=== PATIENT | male | born 1970 | race Caucasian/White ===

== ENCOUNTER 2016-12-05 12:34 | Emergency (ER) | payer OTHER ==
[2016-12-05 12:42] VITALS: BMI 27.7
--- NOTE | 2016-12-05 12:42 | PDOC ---
History of Present Illness - General Chief Complaint: Injury Stated Complaint: FALL Time Seen by Provider: 12/05/16 12:39 History Source: Patient Exam Limitations: No Limitations - History of Present Illness Initial Comments: 12/05/16 13:11 46y M hx of hard of hearing, presents s/p fall. 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 pt states he was walking around '[place]' last night and didnt see the hole in front of him and fell, from a ledge approximately 10 feet, he landed on his back, thinks he may have loc briefly. he went home and took some pain meds, but pain still persisteent and not improvement so pt comes to the ED for evaluation. the pt complains of mild headache, neck pain, lower back pain, knee pain, shoulder pain. Pt denies any n/v, vision changes, numbness/tingling/weakness. Past History - Past Medical History Allergies/Adverse Reactions: Allergies Allergy/AdvReac Type Severity Reaction Status Date / Time Penicillins Allergy Rash Verified 12/05/16 12:43 tramadol Allergy Verified 12/05/16 12:43 hydromorphone HCl AdvReac Verified 12/05/16 12:43 [From Dilaudid] Home Medications: Ambulatory Orders Zolpidem Tartrate [Ambien] 10 mg PO HS 01/10/14 Oxycodone HCl/Acetaminophen [Percocet 5-325 mg Tablet -] 1 - 2 combo PO Q6H PRN #60 tab 01/11/14 Methocarbamol [Robaxin -] 1,500 mg PO BID PRN #21 tablet 12/05/16 Anemia: No Asthma: No Cancer: No Cardiac Disorders: No CVA: No COPD: No CHF: No Dementia: No Diabetes: No GI Disorders: No Disorders: No HTN: No Hypercholesterolemia: No Liver Disease: No Seizures: Yes Thyroid Disease: No - Surgical History Abdominal Surgery: No Appendectomy: No Cardiac Surgery: No Cholecystectomy: No Lung Surgery: No Neurologic Surgery: No Orthopedic Surgery: Yes (LLE JOCELYN, 2 RODS LOWER BACK) - Immunization History Td Vaccination: Yes TDAP Vaccination: Yes Immunization Up to Date: Yes - Psycho/Social/Smoking Cessation Hx Anxiety: No Suicidal Ideation: No Smoking Status: No Smoking History: Never smoked Have you smoked in the past 12 months: No Number of Cigarettes Smoked Daily: 0 Cigars Per Day: 0 Hx Alcohol Use: No Drug/Substance Use Hx: No Hx Substance Use Treatment: No Review of Systems - Review of Systems Able to Perform ROS?: Yes Comments:: 12/05/16 13:22 Constitutional - no reported Fever, Chills, weakness, HEENT: no reported vision changes, sore throat Respiratory: no reported cough, sob, hemoptysis Cardiac: no reported chest pain, palpitations, light headedness, leg swelling Abd/GI: no reported abd pain, nausea, vomiting, blood per rectum, melena, diarrhea : no reported dysuria, frequency, discharge Musculskelatal - +shoulder pain, hand pain, kene pain, back pain no reported joint swelling skin - no reported bruising, erythema, rash neurological: +mild headache no reported headache, numbness, focal weakness, tingling, ataxia, weakness hematologic: no reported anemia, easy bruising, easy bleeding Is the patient limited Armenian proficient: Yes *Physical Exam - Physical Exam Comments: 12/05/16 13:23 GENERAL: The patient is awake, alert, and fully oriented, Nontoxic - in no acute distress. HEAD: Normocephalic, atraumatic. EYES: extraocular movements intact, sclera anicteric, conjunctiva clear. ENT: Moist mucous membranes. NECK/BACK: mild tenderness in paracervial region of neck LUNGS: Breath sounds equal, clear to auscultation bilaterally. HEART: slightly tachycardic ABDOMEN: +mild tenderness in L chest/rib/flank area, no ecchymosis, abd Soft, nontender, normoactive bowel sounds. No guarding, no rebound. No CVA tenderness EXTREMITIES: tenderness to the L shouder with abrasion on his L shoulder, proximal L tib/fib, R shoulder - able to ROM shoulders with minimal pain, normal ROM of b/l hip/knee/ankle, mild ttp to R pelvic brim, abrasion on his right hand with mild tenderness over 4th-5th mcp - normal strength, able to make a fist without significant pain. NEUROLOGICAL: No facial assymetry, Normal speech, moving all of his extremities spontaneously and symmetrically PSYCH: Normal mood, normal affect. SKIN: Warm, Dry, normal turgor, Heart Score/ECG Review - ECG Impressions Comment:: 12/05/16 13:33 Twelve-lead EKG was performed and reviewed by me. There is normal sinus rhythm with a rate of 107 The axis is normal. The intervals are normal. There is normal R wave progression q wave in III Impression: sinus tachycardia ED Treatment Course - LABORATORY CBC & Chemistry Diagram: 12/05/16 13:20 12/05/16 13:20 Medical Decision Making - Medical Decision Making 12/05/16 13:29 46y M hx of difficulty hearing presents s/p trauma - had fallen approx 10 foot hole last night, went home last night, took some pain meds but pain not improved. will obtain xrays, cts to various locations of pain. will give morphine ofr pain. fluids for hydration 12/05/16 15:49 the pts xrays and cts are negative the pts L tibfib xray notes IM nail with heavy perosteal reaction and degenerative changes. there is also evidence of distal shaft left tibia suggestive of old trauma, no tenderness noted there labs unreemarkable 12/05/16 16:54 pt feeling improved - but continues to ask for fentanyl and roxycodone. pt evasive when asked who writes him for fentanyl and why - requets for me to call dr. gannon. i notified him that dr gannon is not availble. i looked the pt up on [facility] drug database and saw that the pt was written for pain meds/sleep meds by a neurologist in the city approximately monthly. (not fentanyl). the pt is ambulating around in no distress. will dc the pt with robaxin will have pt fu with pmd return precautions were discussed I discussed the physical exam findings, ancillary test results and final diagnoses with the patient. I answered all of the patient's questions. The patient was satisfied with the care received and felt comfortable with the discharge plan and treatment plan. The patient will call their primary care physician within 24 hours to arrange follow-up and will return to the Emergency Department with any new, persistent or worsening symptoms. *DC/Admit/Observation/Transfer Diagnosis at time of Disposition: Back pain Qualifiers: Back pain location: low back pain Chronicity: acute Back pain laterality: unspecified Sciatica presence: without sciatica Qualified Code(s): M54.5 - Low back pain Head injury Qualifiers: Encounter type: initial encounter Qualified Code(s): S09.90XA - Unspecified injury of head, initial encounter Knee pain, left Qualifiers: Chronicity: acute Qualified Code(s): M25.562 - Pain in left knee - Discharge Dispostion Disposition: HOME Condition at time of disposition: Improved Admit: No - Prescriptions Prescriptions: Methocarbamol [Robaxin -] 1,500 mg PO BID PRN #21 tablet PRN Reason: Pain - Referrals Referrals: Dimas Mckeon MD [Staff Physician] - - Patient Instructions Printed Discharge Instructions: DI for Trauma, DI for Low Back Pain Additional Instructions: Return to the emergency department immediately with ANY new, persistent or worsening symptoms. You MUST call and follow up with your doctor in 2 - 3 days for further evaluation of your symptoms. Results were discussed with you. Please make sure your doctor reviews the results of your emergency evaluation. Print Language: CROATIAN
[2016-12-05] MEDS ORDERED: SODIUM CHLORIDE 1,000 ML IV ONE (13:09)
[2016-12-05] MEDS ORDERED: morphine CARPU-JECT 4 MG/1 ML DISP.SYRIN IVPUSH ONE (13:09)
[2016-12-05] MEDS ORDERED: morphine CARPU-JECT 4 MG/1 ML DISP.SYRIN ONE (13:29)
[2016-12-05] MEDS ORDERED: morphine CARPU-JECT 2 MG/1 ML DISP.SYRIN ONE (13:29)
[2016-12-05 13:34] LABS: BASOPHIL 0.4 % (0-2.0); EOSINOPHIL 0.6 % (0-4.5); MCH 29.3 pg (25.7-33.7); MCHC 34.3 g/dl (32.0-35.9); MEAN CELL VOLUME 85.3 fl (80-96); MEAN PLT VOLUME 7.7 fl (7.5-11.1); NEUTROPHILS 64.4 % (42.8-82.8); PLATELET COUNT 237 K/MM3 (134-434); RDW 13.4 % (11.9-15.9); WHITE BLOOD COUNT 9.1 K/mm3 (4.0-10.0)
[2016-12-05 14:10] LABS: ALBUMIN 3.7 g/dl (3.4-5.0); ALK PHOS 57 U/L (45-117); ANION GAP 12 (8-16); BILIRUBIN,TOTAL 0.4 mg/dL (0.2-1.0); CALCIUM 8.8 mg/dL (8.5-10.1); CO2 25 mmol/L (21-32); CREATININE 1.1 mg/dL (0.7-1.3); GLUCOSE,RANDOM 92 mg/dL (74-106); SGPT/ALT 32 U/L (12-78); TOT PROT 7.1 g/dl (6.4-8.2)
[2016-12-05 14:11] LABS: SGOT/AST 23 U/L (15-37)
[2016-12-05] MEDS ORDERED: KETOROLAC TROMETHAMINE 30 MG/1 ML VIAL IVPUSH ONE (15:49)
[2016-12-05] MEDS ORDERED: KETOROLAC TROMETHAMINE 30 MG/1 ML VIAL ONE (15:58)
[2016-12-05] MEDS ORDERED: diazePAM 5 MG TABLET PO ONE (16:54)
[2016-12-05 18:08] VITALS: BP 139/76; PULSE 89; TEMP 98.1
--- NOTE | 2016-12-05 18:20 | EKG ---
Test Reason : Blood Pressure : / mmHG Vent. Rate : 107 BPM Atrial Rate : 107 BPM P-R Int : 138 ms QRS Dur : 092 ms QT Int : 340 ms P-R-T Axes : 065 028 020 degrees QTc Int : 453 ms SINUS TACHYCARDIA OTHERWISE NORMAL ECG WHEN COMPARED WITH ECG OF 19-APR-2011 21:40, VENT. RATE HAS INCREASED BY 41 BPM Confirmed by LISSETT VACA MD ([id number]) on 12/05/2016 6:20:20 PM Referred By: Confirmed By:LISSETT VACA MD
== END 2016-12-05 17:56 | disposition home or self-care (01) ==
LOC: JER 12:34
PROC: 3E0337Z Introduction of Electrolytic and Water Balance Substance into Peripheral Vein, Percutaneous Approach (ICD-10-PCS; principal; 2016-12-05)
PROC: 3E033NZ Introduction of Analgesics, Hypnotics, Sedatives into Peripheral Vein, Percutaneous Approach (ICD-10-PCS; 2016-12-05)
PROC: 3E0333Z Introduction of Anti-inflammatory into Peripheral Vein, Percutaneous Approach (ICD-10-PCS; 2016-12-05)
DX: S09.8XXA Other specified injuries of head, initial encounter (principal); M54.5 Low back pain; M25.562 Pain in left knee; M25.512 Pain in left shoulder; W17.2XXA Fall into hole, initial encounter; Y93.89 Activity, other specified; Y92.89 Other specified places as the place of occurrence of the external cause
CPT/HCPCS: 36415; 70450-TC; 71101-TC; 72125-TC; 72128-TC; 72131-TC; 73030-TC-LT; 73030-TC-RT; 73060-TC-RT; 73130-TC-RT; 73523-TC; 73562-TC-LT; 73590-TC-LT; 80053; 85025; 86850; 86900; 86901; 93005; 93010; 96361; 96374; 96375; 99283-25

== ENCOUNTER 2016-12-05 18:05 | Emergency (ER) | payer OTHER ==
[2016-12-05 18:17] VITALS: TEMP 97.9; BMI 25.7
--- NOTE | 2016-12-05 18:30 | PDOC ---
History of Present Illness - General Chief Complaint: Injury Stated Complaint: FALL Time Seen by Provider: 12/05/16 18:17 History Source: Patient - History of Present Illness Initial Comments: 12/05/16 18:34 46y M hx of deafness, was hear earlier today for evaluation of trauma sp fall. The pt was cleared, feeling improved, ambulating around. The pt persistently requesting narcotic medications - specifically fentanyl and roxycodone and was refused - pt was ultimately discharged with antisposmotic. as pt was refusing to leave (and kept on askng for rx for narcotic), security was notified to escort the pt. when the pt got outside, pt had reporded seizure like activity for several seconds. i arrived immediatley and activity had resolved, the pts pupils were 4mm reactie to light, was breathing spontaneously and with strong pulses. when the pt was brought back to the ED he was awake, alert and walking around. pt still requesting pain medications. security was with the patient and the pt did not fall or injure himself, he was lowered down slowly by the operations staff specialist security. pt denies any headache, vision changes, nausea, vomiting, arm pain, leg pain, n/ v, cp, sob. pt does endorse pain to his lower back, where he had surgery in the past. pt dodging specific questions into why he is on fentanyl and asking for fentanyl i checked the pts PUBLISHING DIRECTOR - and pt filled 30 days zolipedem and percocet from dr. au i originally rquested a flitch hanger forthe patient - he declined, requesting to communiate by writing. But we will get a deaf itnerpreter now to make sure there is no misunderstandings. Past History - Past Medical History Allergies/Adverse Reactions: Allergies Allergy/AdvReac Type Severity Reaction Status Date / Time Penicillins Allergy Rash Verified 12/05/16 18:17 tramadol Allergy Verified 12/05/16 18:17 hydromorphone HCl AdvReac Verified 12/05/16 18:17 [From Dilaudid] Home Medications: Ambulatory Orders Zolpidem Tartrate [Ambien] 10 mg PO HS 01/10/14 Oxycodone HCl/Acetaminophen [Percocet 5-325 mg Tablet -] 1 - 2 combo PO Q6H PRN #60 tab 05/01/14 Methocarbamol [Robaxin -] 1,500 mg PO BID PRN #21 tablet 12/05/16 Anemia: No Asthma: No Cancer: No Cardiac Disorders: No CVA: No COPD: No CHF: No Dementia: No Diabetes: No GI Disorders: No Disorders: No HTN: No Hypercholesterolemia: No Liver Disease: No Seizures: Yes Thyroid Disease: No - Surgical History Abdominal Surgery: No Appendectomy: No Cardiac Surgery: No Cholecystectomy: No Lung Surgery: No Neurologic Surgery: No Orthopedic Surgery: Yes (LLE JOCELYN, 2 RODS LOWER BACK) - Immunization History Td Vaccination: Yes TDAP Vaccination: Yes Immunization Up to Date: Yes - Psycho/Social/Smoking Cessation Hx Anxiety: No Suicidal Ideation: No Smoking Status: No Smoking History: Never smoked Have you smoked in the past 12 months: No Number of Cigarettes Smoked Daily: 0 Cigars Per Day: 0 Information on smoking cessation initiated: No Hx Alcohol Use: No Drug/Substance Use Hx: No Substance Use Type: None Hx Substance Use Treatment: No Review of Systems - Review of Systems Able to Perform ROS?: Yes Comments:: 12/05/16 19:10 Constitutional - no reported Fever, Chills, weakness, HEENT: no reported vision changes, sore throat Respiratory: no reported cough, sob, hemoptysis Cardiac: no reported chest pain, palpitations, light headedness, leg swelling Abd/GI: no reported abd pain, nausea, vomiting, blood per rectum, melena, diarrhea : no reported dysuria, frequency, discharge Musculskelatal - +lower back pain no reported joint swelling skin - no reported bruising, erythema, rash neurological: no reported headache, numbness, focal weakness, tingling, ataxia, weakness hematologic: no reported anemia, easy bruising, easy bleeding *Physical Exam - Vital Signs Last Vital Signs Temp Pulse Resp BP Pulse Ox 97.9 F 111 H 18 144/92 98 12/05/16 18:11 12/05/16 18:11 12/05/16 18:11 12/05/16 18:11 12/05/16 18:11 - Physical Exam Comments: 12/05/16 19:42 GENERAL: The patient is awake, alert, and fully oriented, Nontoxic - in no acute distress. HEAD: Normocephalic, atraumatic. EYES: extraocular movements intact, sclera anicteric, conjunctiva clear. ENT: Moist mucous membranes. NECK/BACK: no tenderness in midline cervical/thoracic/lumbar region, well healed scar in the lumbar spine LUNGS: Breath sounds equal, clear to auscultation bilaterally. HEART: slightly tachycardic ABDOMEN: +mild tenderness in L chest/rib/flank area, no ecchymosis, abd Soft, nontender, normoactive bowel sounds. No guarding, no rebound. No CVA tenderness EXTREMITIES: tenderness to the L shouder with abrasion on his L shoulder, proximal L tib/fib, R shoulder - able to ROM shoulders with minimal pain, normal ROM of b/l hip/knee/ankle, mild ttp to R pelvic brim, abrasion on his right hand with mild tenderness over 4th-5th mcp - normal strength, able to make a fist without significant pain. NEUROLOGICAL: No facial assymetry, Normal speech, moving all of his extremities spontaneously and symmetrically PSYCH: Normal mood, normal affect. SKIN: Warm, Dry, normal turgor, Medical Decision Making - Medical Decision Making 12/05/16 19:46 46y M originalyl here for evaluation of a fall - had negative imaging and was being discharged. whiel being escorted by security the pt had a possible seizure vs. pseudoseizure. no injury as the pt did not fall down - pts lactic acid was drawn immediately afterwards and was noted to be slightly elevated at 2.4 i would expect an immediate LA to be significantly elevated as the pt is slightly tachycardic will place an IV and will hydrate the patient. the pt has also not eaten or drank anything since arrival - suspect tachycardia possible due to dehydration. will hydrate the pt and reasses a deaf translater was notified to clarify with the patient. the pt was signed out dr. brewer to reassess the pt and his vital signs. *DC/Admit/Observation/Transfer Diagnosis at time of Disposition: Fall, Chronic pain - Discharge Dispostion Disposition: HOME Condition at time of disposition: Good - Patient Instructions Additional Instructions: Please follow up with your painter sign maintenance and your psychiatrist within the next 48 hours.
[2016-12-05] MEDS ORDERED: SODIUM CHLORIDE 1,000 ML IV ONE (19:05)
[2016-12-05 19:08] VITALS: BP 143/99; PULSE 117
[2016-12-05] MEDS ORDERED: SODIUM CHLORIDE 0.9% 500 ML INFUS.BAG IV ONE (20:45)
--- NOTE | 2016-12-05 21:56 | PDOC ---
*Physical Exam - Vital Signs Last Vital Signs Temp Pulse Resp BP Pulse Ox 97.9 F 117 H 20 143/99 100 12/05/16 18:11 12/05/16 19:07 12/05/16 19:07 12/05/16 19:07 12/05/16 19:07 ED Treatment Course - ADDITIONAL ORDERS Additional order review: Laboratory Results 12/05/16 18:06 Lactic Acid 2.445 H* - RADIOLOGY Radiology Studies Ordered: Category Date Time Status HEAD CT WITHOUT CONTRAST [CT] Stat CT Scan 12/05/16 20:44 Ordered Medical Decision Making - Medical Decision Making 12/05/16 21:51 The patient is received on sign out. He is being uncooperative with staff, not answering questions appropriately and continues to be elusive in answering questions directly, despite use of ASL communications equipment installer. He has been noted to have no ataxia, goal directed and sensical thoughts including demanding to be transferred to [facility]; he requests a "clearance" for this. We have explained multiple times this is not possible. He has no objective indication for admission and he is making sensical statements without evidence of confusion. He is strongly encouraged to follow up with his primary psychiatrist within the next 24 hours. 12/05/16 21:55 Also, effort has been made to contact the phone numbers on file for next of kin to ascertain collateral information. *DC/Admit/Observation/Transfer Diagnosis at time of Disposition: Fall, Chronic pain - Discharge Dispostion Disposition: HOME Condition at time of disposition: Good Admit: No Decision to Admit order Date/Time: 12/05/16 21:56 - Patient Instructions Additional Instructions: Please follow up with your paperhanger and painter and your psychiatrist within the next 48 hours.
== END 2016-12-06 01:24 | disposition home or self-care (01) ==
LOC: JER 18:05
DX: G89.29 Other chronic pain (principal); W18.39XA Other fall on same level, initial encounter; Y93.89 Activity, other specified; Y92.238 Other place in hospital as the place of occurrence of the external cause; G40.909 Epilepsy, unspecified, not intractable, without status epilepticus; F45.42 Pain disorder with related psychological factors
CPT/HCPCS: 83605; 99281-25